=== PATIENT | female | born 1935 | race Hispanic/Latino ===

== ENCOUNTER 2017-01-10 10:55 | Outpatient (CLI) | payer MEDICARE ==
--- NOTE | 2017-01-10 14:14 | XRay Report ---
AP AND LATERAL CERVICAL SPINE: History: Neck pain. Mild osteopenia is suspected. The vertebral bodies are normal in alignment and vertebral height with well preserved interspace distances. The visualized portions of the posterior elements are normal. IMPRESSION: Mild osteopenia. Otherwise unremarkable exam of the cervical spine.
--- NOTE | 2017-01-10 15:46 | Mammography Report ---
BILATERAL DIGITAL SCREENING MAMMOGRAM with CAD : 01/10/17 10:55:00 CLINICAL: Routine screening. COMPARISON:12/12/15 FINDINGS: The breasts are heterogeneously dense, which may obscure small masses. No mass, architectural distortion or suspicious calcifications. IMPRESSION: No mammographic evidence of malignancy. BI-RADS CATEGORY: 2 -- Benign RECOMMENDATION: Routine mammographic screening in one year. COMMENT: Patient follow-up letters are generated by our [employer] application.
== END 2017-01-10 10:56 | disposition home or self-care (01) ==
LOC: SPVWC 10:55 → SPVIMAG 10:55
PROVIDERS: ATTEND Internal Medicine
DX: Z12.31 Encounter for screening mammogram for malignant neoplasm of breast (principal); M85.88 Other specified disorders of bone density and structure, other site
CPT/HCPCS: 72040; G0202; 77067

== ENCOUNTER 2019-01-24 15:02 | Outpatient (CLI) | payer MEDICARE ==
--- NOTE | 2019-01-24 15:57 | XRay Report ---
Acute abdomen series 2 views 1544 INDICATION: Constipation for 11 days, recent bowel movement Only an AP chest and and abdomen were obtained, both probably in a supine position though I am unable to speak with the technologist who performed the study for confirmation. There could be a minimal left pleural effusion. There appears to be a minimal hiatal hernia. No areas of consolidation are seen. Heart size appears within normal limits. Bowel gas pattern shows gas throughout the colon without evidence of obstruction. Atherosclerotic charisse nges are seen cholecystectomy changes and left femoral surgical changes are noted. No obvious urinary tract calculi are seen. Signer Name: Erich Kim MD Signed: 01/24/2019 3:53 PM Workstation Name: [id number]
== END 2019-01-24 15:03 | disposition home or self-care (01) ==
LOC: SPVIMAG 15:02
PROVIDERS: ATTEND Internal Medicine
DX: K44.9 Diaphragmatic hernia without obstruction or gangrene (principal); J90 Pleural effusion, not elsewhere classified
CPT/HCPCS: 74022

== ENCOUNTER 2019-02-15 11:49 | Outpatient (CLI) | payer MEDICARE ==
--- NOTE | 2019-02-15 12:45 | XRay Report ---
Left tibia and fibula, 2 views INDICATION: Left leg pain. COMPARISON: None. IMPRESSION: Osteopenia is evident. No acute osseous injury or bone lesion is identified. 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 There is mild diffuse soft tissue swelling. Left ankle, 3 views INDICATION: LEFT ANKLE PAIN. COMPARISON: None. IMPRESSION: Osteopenia is evident. No acute osseous injury is appreciated. 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 Small plantar spur is identified. There is mild diffuse soft t issue swelling. Signer Name: Shaggy Sanchez Jr, MD Signed: 02/15/2019 12:40 PM Workstation Name: [id number]
== END 2019-02-15 11:50 | disposition home or self-care (01) ==
LOC: SPVIMAG 11:49
PROVIDERS: ATTEND Internal Medicine
DX: M85.872 Other specified disorders of bone density and structure, left ankle and foot (principal); M19.072 Primary osteoarthritis, left ankle and foot; M79.89 Other specified soft tissue disorders